=== PATIENT | female | born 1995 | race Two or more races ===

== ENCOUNTER 2022-12-16 17:30 | Emergency (ER) | payer MEDICAID, OTHER ==
[~2022-12-16] VITALS: Ht 165.1 cm; Wt 119.0 kg
[2022-12-16 17:40] VITALS: BP 161/95
== END 2022-12-17 04:39 | disposition left against medical advice (07) ==
LOC: ER 17:30
DX: J02.9 Acute pharyngitis, unspecified (principal); Z53.21 Procedure and treatment not carried out due to patient leaving prior to being seen by health care provider